=== PATIENT | male | born 1970 | race Caucasian/White ===

== ENCOUNTER 2016-04-17 22:00 | Emergency (ER) | payer MEDICAID, OTHER ==
[~2016-04-17] VITALS: Ht 172.7 cm; Wt 90.7 kg
[~2016-04-17 22:00] MED LIST: ASPIR-TRIN325 M1 PO; ASPIRIN ADULT L81 M1 PO; ASPIRIN81 M1 PO; COLACE100 M1 PO; DOCUSATE100 MG PO; FLAGYL250 MG PO; LEVAQUIN500 MG PO; METFORMIN500 MG PO; NORCO 10/325 MG1 TAB PO; PRINIVIL10 M1 PO; ZOCOR20 MG PO
[2016-04-17 22:10] VITALS: BP 117/59
--- NOTE | 2016-04-17 22:52 | NUR ---
TO ER BED 7
--- NOTE | 2016-04-17 23:02 | NUR ---
PATIENT PRESENTS TO ED WITH RT FOOT GREATER TOE EDEMA AND ERYTHEMA X4DAYS. PT STATES HE WAS PLAYING BASKETBALL AND NOW HIS TOE IS HURTING . DENIES N/V/D; SKIN IS PINK/WARM/DRY; AAOX4 WITH EVEN AND STEADY GAIT; LUNGS CLEAR BL; HR EVEN AND REGULAR; PT DENIES ANY FEVER, CP, SOB, OR COUGH AT THIS TIME; PATIENT STATES PAIN OF 8/10 AT THIS TIME; VSS; PATIENT POSITIONED FOR COMFORT; HOB ELEVATED; BEDRAILS UP X2; BED DOWN. ER MD MADE AWARE OF PT STATUS. AT BEDSIDE
[2016-04-17] MEDS ORDERED: KETOROLAC 60 MG/2 ML VIAL IM ONE (23:20)
[2016-04-18 00:48] VITALS: BP 117/59
--- NOTE | 2016-04-18 00:53 | NUR ---
Patient discharged with v/s stable. Written and verbal after care instructions given and explained. Patient alert, oriented and verbalized understanding of instructions. Ambulatory with steady gait. All questions addressed prior to discharge. ID band removed. Patient advised to follow up with PMD. Rx of BACTRIM AND MOTRIN given. Patient educated on indication of medication including possible reaction and side effects. Opportunity to ask questions provided and answered.
[2016-08-30] MEDS ORDERED: FLAGYL250 MG PO (09:24)
[2016-08-30] MEDS ORDERED: PRINIVIL10 M1 PO (09:24)
[2016-08-30] MEDS ORDERED: ZOCOR40 MG PO (09:24)
== END 2016-04-18 00:48 | disposition home or self-care (01) ==
LOC: MED 22:00
PROC: 3E033GC Introduction of Other Therapeutic Substance into Peripheral Vein, Percutaneous Approach (ICD-10-PCS; principal; 2016-04-17)
DX: L03.115 Cellulitis of right lower limb (principal); I10 Essential (primary) hypertension; E11.9 Type 2 diabetes mellitus without complications; J45.909 Unspecified asthma, uncomplicated
CPT/HCPCS: 36415; 73630; 82948; 84550; 96372; 99284; J1885; Q0092

== ENCOUNTER 2016-08-28 09:25 | Inpatient (IN) | payer MEDICAID ==
[~2016-08-28] VITALS: Ht 172.7 cm; Wt 93.0 kg
[~2016-08-28 09:25] MED LIST changes: +ASPI81CT89 PO; -ASPIR-TRIN325 M1 PO; -ASPIRIN ADULT L81 M1 PO; -ASPIRIN81 M1 PO; -COLACE100 M1 PO; -DOCUSATE100 MG PO; -FLAGYL250 MG PO; +HYDR-4452 PO; -LEVAQUIN500 MG PO; +LEVO500T6 PO; +LISI10TA2 PO; +METF500T64 PO; -METFORMIN500 MG PO; +METR250T2 PO; -NORCO 10/325 MG1 TAB PO; -PRINIVIL10 M1 PO; +SIMV20TA1 PO; -ZOCOR20 MG PO
[2016-08-28 09:49] VITALS: BP 118/83
[2016-08-28] MEDS ORDERED: HYDROmorphone 1 MG/ML AMP IVP ONE (11:25)
[2016-08-28] MEDS ORDERED: ONDANSETRON 4 MG/2 ML VIAL IVP ONE (11:25)
[2016-08-28] MEDS ORDERED: NACL 0.9% 1,000 ML IV ONE (11:25)
[2016-08-28] MEDS ORDERED: MEROPENEM 1,000 MG in NACL 0.9% 100 ML IV ONE (11:25)
[2016-08-28 11:44] LABS: HEMATOCRIT 49.1 % (36-52); MEAN CORPUSCULAR HEMOGLOBIN 32 pg (27-31); MEAN CORPUSCULAR HGB CONC 35 g/dL (33-37); MEAN CORPUSCULAR VOLUME 94 fL (80-94); PLATELET COUNT (AUTO) 370 K/uL (140-450); RED BLOOD CELL COUNT(AUTO) 5.24 MIL/uL (4.20-6.10); RED CELL DISTRIBUTION WIDTH 12.1 % (11.6-13.7); WHITE BLOOD COUNT (AUTO) 15.5 K/uL (4.8-10.8)
[2016-08-28 11:47] LABS: APPEARANCE,URINE CLEAR (CLEAR); BILIRUBIN,URINE NEGATIVE (NEGATIVE); BLOOD, URINE NEGATIVE (NEGATIVE); COLOR,URINE YELLOW (YELLOW); LEUKOCYTE ESTERASE ,URINE NEGATIVE (NEGATIVE); NITRITE, URINE NEGATIVE (NEGATIVE); PH,URINE 5.5 (5.0-9.0); PROTEIN,URINE NEGATIVE (NEGATIVE); UGLUCOSE NEGATIVE (NEGATIVE); UROBILINOGEN,URINE 0.2 EU/dL (0.2 - 1)
[2016-08-28 11:52] LABS: BACTERIA,URINE None Seen /HPF (None Seen); RBC,URINE NONE SEEN /HPF (0-5); SQUAMOUS EPITHELIAL CELL,UR 0-3 (FEW) /LPF (0-3 (FEW)); WBC,URINE NONE SEEN /HPF (0-5)
[2016-08-28 11:52] LABS: ANION GAP 10.2 (8-16); CARBON DIOXIDE 30.2 mmol/L (21-32); CREATININE 1.3 mg/dL (0.7-1.3); POTASSIUM 4.4 mmol/L (3.5-5.1)
[2016-08-28] MEDS ORDERED: MEROPENEM 1,000 MG VIAL IV ONE (11:57)
[2016-08-28 11:58] LABS: ALBUMIN 4.2 g/dL (3.4-5.0); TOTAL BILIRUBIN 1.1 mg/dL (0.0-1.0); TOTAL PROTEIN, SERUM 8.3 g/dL (6.4-8.2)
[2016-08-28 12:06] LABS: NEUTROPHILS % (MANUAL) 82 (43-65)
[2016-08-28 12:07] LABS: EOSINOPHILS % (MANUAL) 3 % (0-4); LYMPHOCYTES % (MANUAL) 11 % (20-46); MONOCYTES % (MANUAL) 4 % (5-12); PLATELET ESTIMATE ADEQUATE
[2016-08-28] MEDS ORDERED: ONDANSETRON 4 MG/2 ML VIAL IVP PRN (14:35)
[2016-08-28] MEDS ORDERED: ACETAMINOPHEN 325 MG TAB PO PRN (14:35)
[2016-08-28 15:14] LABS: LACTIC ACID 1.2 mmol/L (0.4-2.0)
[2016-08-28 15:20] LABS: CHOL/HDL RATIO 4.9 (1-4.5); FREE T4 (FREE THYROXINE) 0.86 ng/dL (0.76-1.46); MAGNESIUM 1.9 mg/dL (1.8-2.4); PARTIAL THROMBOPLASTIN TIME 29.9 secs (22-35.6); PHOSPHORUS 3.6 mg/dL (2.5-4.9); PROTHROMBIN TIME 10.3 secs (10.8-13.4); THYROID STIMULATING HORMONE 0.87 uIU/mL (0.34-3.74)
[2016-08-28 15:24] LABS: AMPHETAMINE, URINE NEG. ng/ml (NEG <=1000); BARBITURATE, URINE NEG. ng/ml (NEG <=200); BENZODIAZEPINE, URINE NEG. ng/mL (NEG <=200); CANNABINOID, URINE NEG. ng/mL (NEG <=50); COCAINE, URINE NEG. ng/mL (NEG <=300); OPIATE, URINE NEG. ng/mL (NEG <=2000); PHENCYCLIDINE SCREEN,URINE NEG. ng/mL (NEG <=25)
[2016-08-28 15:30] VITALS: BP 116/76
[2016-08-28] MEDS ORDERED: DEXTROSE 50% 50 ML SYR IVP PRN (16:40)
[2016-08-28] MEDS ORDERED: INSULIN LISPRO SLIDING SCALE 100 UNITS/ML VIAL SUBQ PRN (16:40)
[2016-08-28] MEDS ORDERED: PNEUMOCOCCAL VACCINE 23 MCG/0.5 ML VIAL IMVAC SCH (17:15)
[2016-08-28] MEDS ORDERED: PIPERACILLIN/TAZOBACTAM 3.375 GM in DEXTROSE 5% 50 ML IV SCH (18:00)
[2016-08-28] MEDS: PIPER/TAZO 3.375GM/D5W PREMIX 50 ML IV SCH ×2 (18:14→23:57)
[2016-08-28] MEDS: HYDROcodone/APAP 7.5/325 MG 1 TAB PO PRN (18:15)
[2016-08-28] MEDS: NACL 0.9% 1,000 ML IV SCH (18:17)
[2016-08-28 20:00] VITALS: BP 132/84
[2016-08-28] MEDS: DOCUSATE SODIUM 100 MG GELCAP PO SCH (20:51)
[2016-08-28] MEDS: metFORMIN 500 MG TAB PO SCH (20:51)
[2016-08-28] MEDS: SIMVASTATIN 20 MG TAB PO SCH (20:51)
[2016-08-28] MEDS: BLOOD GLUCOSE MONITORING 1 DEV DEV FS SCH (20:52)
[2016-08-28] MEDS: MORPHINE SULFATE 2 MG/ML SYR IVP PRN (23:57)
[2016-08-29] VITALS: BP 131/87
[2016-08-29] MEDS: NACL 0.9% 1,000 ML IV SCH ×3 (00:01→16:45)
[2016-08-29 04:00] VITALS: BP 128/74
[2016-08-29] MEDS: PIPER/TAZO 3.375GM/D5W PREMIX 50 ML IV SCH ×4 (05:05→23:34)
[2016-08-29 05:48] LABS: BASOPHILS # (AUTO) 0.1 K/uL (0.00-0.22); BASOPHILS % (AUTO) 0.7 % (0.0-2.0); EOSINOPHILS # (AUTO) 0.2 K/uL (0-0.4); EOSINOPHILS % (AUTO) 1.4 % (0.0-4.0); HEMATOCRIT 45.1 % (36-52); HEMOGLOBIN 15.4 g/dL (12.0-18.0); LYMPHOCYTES # (AUTO) 1.9 K/uL (2.0-11.5); LYMPHOCYTES % (AUTO) 13.3 % (20.5-51.1); MEAN CORPUSCULAR HEMOGLOBIN 33 pg (27-31); MEAN CORPUSCULAR HGB CONC 34 g/dL (33-37); MEAN CORPUSCULAR VOLUME 96 fL (80-94); MONOCYTES # (AUTO) 1.5 K/uL (0.8-1.0); MONOCYTES % (AUTO) 10.6 % (1.7-9.3); NEUTROPHILS # (AUTO) 10.8 K/uL (1.8-7.7); PLATELET COUNT (AUTO) 345 K/uL (140-450); RED CELL DISTRIBUTION WIDTH 12.2 % (11.6-13.7); WHITE BLOOD COUNT (AUTO) 14.5 K/uL (4.8-10.8)
[2016-08-29 06:33] LABS: ANION GAP 12.6 (8-16); CALCIUM 8.5 mg/dL (8.5-10.1); CARBON DIOXIDE 28.5 mmol/L (21-32); CREATININE 1.3 mg/dL (0.7-1.3); POTASSIUM 4.1 mmol/L (3.5-5.1)
[2016-08-29 06:47] LABS: MAGNESIUM 1.8 mg/dL (1.8-2.4); PHOSPHORUS 3.5 mg/dL (2.5-4.9)
[2016-08-29] MEDS: BLOOD GLUCOSE MONITORING 1 DEV DEV FS SCH ×4 (06:53→21:38)
[2016-08-29 08:00] VITALS: BP 119/70
[2016-08-29] MEDS: ASPIRIN 81 MG TAB.CHEW PO SCH (08:18)
[2016-08-29] MEDS: DOCUSATE SODIUM 100 MG GELCAP PO SCH ×2 (08:19→21:38)
[2016-08-29] MEDS: LACTOBACILLUS RHAMNOSUS GG 1 EACH CAP PO SCH (08:19)
[2016-08-29] MEDS: LISINOPRIL 10 MG TAB PO SCH (08:19)
[2016-08-29] MEDS: HYDROcodone/APAP 7.5/325 MG 1 TAB PO PRN ×2 (08:19→21:39)
[2016-08-29] MEDS: metFORMIN 500 MG TAB PO SCH ×2 (09:00→21:00)
[2016-08-29 12:00] VITALS: BP 125/69
[2016-08-29 16:00] VITALS: BP 123/71
[2016-08-29] MEDS: MORPHINE SULFATE 2 MG/ML SYR IVP PRN (17:26)
[2016-08-29] MEDS: SIMETHICONE 80 MG TAB.CHEW PO PRN (17:56)
[2016-08-29 20:00] VITALS: BP 113/51
[2016-08-29] MEDS: SIMVASTATIN 20 MG TAB PO SCH (21:38)
[2016-08-30] VITALS: BP 113/51
[2016-08-30] MEDS: NACL 0.9% 1,000 ML IV SCH (00:16)
[2016-08-30] MEDS: MORPHINE SULFATE 2 MG/ML SYR IVP PRN (03:46)
[2016-08-30 04:00] VITALS: BP 121/70
[2016-08-30] MEDS: SIMETHICONE 80 MG TAB.CHEW PO PRN (05:08)
[2016-08-30 06:01] LABS: BASOPHILS # (AUTO) 0.1 K/uL (0.00-0.22); BASOPHILS % (AUTO) 0.9 % (0.0-2.0); EOSINOPHILS # (AUTO) 0.1 K/uL (0-0.4); HEMATOCRIT 45.9 % (36-52); HEMOGLOBIN 15.6 g/dL (12.0-18.0); LYMPHOCYTES # (AUTO) 2.3 K/uL (2.0-11.5); LYMPHOCYTES % (AUTO) 16.1 % (20.5-51.1); MEAN CORPUSCULAR HEMOGLOBIN 33 pg (27-31); MEAN CORPUSCULAR HGB CONC 34 g/dL (33-37); MEAN CORPUSCULAR VOLUME 96 fL (80-94); MONOCYTES # (AUTO) 1.4 K/uL (0.8-1.0); MONOCYTES % (AUTO) 9.7 % (1.7-9.3); NEUTROPHILS # (AUTO) 10.6 K/uL (1.8-7.7); NEUTROPHILS % (AUTO) 72.3 % (42.2-75.2); PLATELET COUNT (AUTO) 349 K/uL (140-450); RED BLOOD CELL COUNT(AUTO) 4.79 MIL/uL (4.20-6.10); RED CELL DISTRIBUTION WIDTH 12.3 % (11.6-13.7); WHITE BLOOD COUNT (AUTO) 14.5 K/uL (4.8-10.8)
[2016-08-30] MEDS: PIPER/TAZO 3.375GM/D5W PREMIX 50 ML IV SCH (06:09)
[2016-08-30] MEDS: BLOOD GLUCOSE MONITORING 1 DEV DEV FS SCH (06:10)
[2016-08-30 06:15] LABS: ANION GAP 9.7 (8-16); CALCIUM 8.7 mg/dL (8.5-10.1); CARBON DIOXIDE 32.4 mmol/L (21-32); CREATININE 1.3 mg/dL (0.7-1.3); POTASSIUM 4.1 mmol/L (3.5-5.1)
[2016-08-30 06:31] LABS: MAGNESIUM 1.8 mg/dL (1.8-2.4); PHOSPHORUS 3.4 mg/dL (2.5-4.9)
[2016-08-30 08:00] VITALS: BP 132/72
[2016-08-30] MEDS: DOCUSATE SODIUM 100 MG GELCAP PO SCH (08:31)
[2016-08-30] MEDS: LACTOBACILLUS RHAMNOSUS GG 1 EACH CAP PO SCH (08:31)
[2016-08-30] MEDS: ASPIRIN 81 MG TAB.CHEW PO SCH (08:31)
[2016-08-30] MEDS: HYDROcodone/APAP 7.5/325 MG 1 TAB PO PRN (08:31)
[2016-08-30] MEDS: LISINOPRIL 10 MG TAB PO SCH (08:31)
[2016-08-30] MEDS: metFORMIN 500 MG TAB PO SCH (08:32)
[2016-08-30] MEDS ORDERED: SIMV40TA1 PO (09:24)
[2016-08-30] MEDS ORDERED: LISI10TA2 PO (09:24)
[2016-08-30] MEDS ORDERED: METR250T2 PO (09:24)
== END 2016-08-30 10:57 | disposition home or self-care (01) | DRG 244 ==
LOC: MED 09:25 → MTU 15:30
PROVIDERS: ADMIT Student in an Organized Health Care Education/Training Program; ATTEND Student in an Organized Health Care Education/Training Program
DX: K57.32 Diverticulitis of large intestine without perforation or abscess without bleeding (principal); N17.0 Acute kidney failure with tubular necrosis; D68.59 Other primary thrombophilia; I10 Essential (primary) hypertension; E11.9 Type 2 diabetes mellitus without complications; D72.829 Elevated white blood cell count, unspecified; E86.0 Dehydration; E78.5 Hyperlipidemia, unspecified; K59.09 Other constipation; Z53.29 Procedure and treatment not carried out because of patient's decision for other reasons; F17.210 Nicotine dependence, cigarettes, uncomplicated; E66.9 Obesity, unspecified; Z68.31 Body mass index [BMI] 31.0-31.9, adult; Z79.899 Other long term (current) drug therapy; Z79.82 Long term (current) use of aspirin; Z71.6 Tobacco abuse counseling; Z83.3 Family history of diabetes mellitus; Z82.49 Family history of ischemic heart disease and other diseases of the circulatory system; Z71.3 Dietary counseling and surveillance; Z79.84 Long term (current) use of oral hypoglycemic drugs
CPT/HCPCS: 36415; 71010; 80048; 80053; 80305; 81001; 82150; 82948; 83036; 83605; 83690; 83735; 83880; 84100; 84132; 84439; 84443; 84484; 85025; 85610; 85730; 87040; 87081; 87086; 93005; 93925; 93970; 96365; 99285; J1170; J1815; J2185; J2270; J2405; J2543; J7030; J7060; Q0092; Q9967

== ENCOUNTER 2017-02-11 07:56 | Emergency (ER) | payer MEDICAID ==
[~2017-02-11] VITALS: Ht 172.7 cm; Wt 104.8 kg
[~2017-02-11 07:56] MED LIST changes: +GLU500 PO; -HYDR-4452 PO; -LEVO500T6 PO; -METF500T64 PO; -SIMV20TA1 PO; +SIMV40TA1 PO
[2017-02-11 08:17] VITALS: BP 152/93
--- NOTE | 2017-02-11 08:24 | NUR ---
PT AMBULATES WITH TO OF3
--- NOTE | 2017-02-11 09:00 | NUR ---
ASSUMED PATIENT CARE, CONCUR WITH TRIAGE ASSESSMENT. C/O SOB, COUGH, FEVER X 4 DAYS.
[2017-02-11] MEDS ORDERED: LEVOFLOXACIN 250 MG TAB PO ONE (09:10)
[2017-02-11] MEDS ORDERED: IPRATROPIUM 0.02% 0.5 MG/2.5 ML NEBU INH ONE (09:10)
[2017-02-11] MEDS ORDERED: cefTRIAXone 1,000 MG in LIDOCAINE 1% ***ER ONLY *** 2.1 ML IM ONE (09:10)
[2017-02-11] MEDS ORDERED: ALBUTEROL 0.083% 2.5 MG/3 ML NEBU INH ONE (09:10)
[2017-02-11] MEDS ORDERED: DEXAMETHASONE 10 MG/ML VIAL IM ONE (09:10)
[2017-02-11] MEDS ORDERED: cefTRIAXone 1,000 MG VIAL ONE (09:43)
--- NOTE | 2017-02-11 10:23 | NUR ---
SEEN AND REEVALUATED BY PROVIDER, DISPO AND MEDICAL DECISION, DC HOME WITH INSTRUCTIONS AND PRESCRIPTIONS.
[2017-02-11 10:43] VITALS: BP 138/77
--- NOTE | 2017-02-11 10:45 | NUR ---
DC HOME WITH INSTRUCTIONS AND PRESCRIPTIONS, UNDERSTOOD BY PATIENT WELL. VERBALIZED RELIEF FROM SYMPTOMS.
== END 2017-02-11 10:45 | disposition home or self-care (01) ==
LOC: MED 07:56
DX: J40 Bronchitis, not specified as acute or chronic (principal); E11.9 Type 2 diabetes mellitus without complications; I10 Essential (primary) hypertension; Z79.899 Other long term (current) drug therapy; Z79.82 Long term (current) use of aspirin; Z79.84 Long term (current) use of oral hypoglycemic drugs
CPT/HCPCS: 71045; 82948; 94640; 96372; 99284; J0696; J1100; J1956; J7613; J7644

== ENCOUNTER 2017-10-12 19:32 | Emergency (ER) | payer MEDICAID, OTHER ==
[~2017-10-12] VITALS: Ht 172.7 cm; Wt 111.6 kg
[2017-10-12 19:40] VITALS: BP 134/77
[2017-10-12 20:22] LABS: EOSINOPHILS # (AUTO) 0.3 K/uL (0-0.4); EOSINOPHILS % (AUTO) 2.7 % (0.0-4.0); HEMOGLOBIN 14.8 g/dL (12.0-18.0); LYMPHOCYTES # (AUTO) 1.6 K/uL (2.0-11.5); LYMPHOCYTES % (AUTO) 13.3 % (20.5-51.1); MEAN CORPUSCULAR HEMOGLOBIN 33 pg (27-31); MEAN CORPUSCULAR HGB CONC 34 g/dL (33-37); MEAN CORPUSCULAR VOLUME 95.3 fL (80-94); MONOCYTES # (AUTO) 2.9 K/uL (0.8-1.0); MONOCYTES % (AUTO) 23.9 % (1.7-9.3); NEUTROPHILS # (AUTO) 7.4 K/uL (1.8-7.7); NEUTROPHILS % (AUTO) 60.1 % (42.2-75.2); PLATELET COUNT (AUTO) 268 K/uL (140-450); RED BLOOD CELL COUNT(AUTO) 4.51 MIL/uL (4.20-6.10); RED CELL DISTRIBUTION WIDTH 12.9 % (11.6-13.7); WHITE BLOOD COUNT (AUTO) 12.3 K/uL (4.8-10.8)
[2017-10-12 20:39] LABS: ANION GAP 11.6 (8-16); CARBON DIOXIDE 30.9 mmol/L (21-32); CREATININE 1.3 mg/dL (0.7-1.3); POTASSIUM 4.5 mmol/L (3.5-5.1)
[2017-10-12 20:47] LABS: ALBUMIN 3.7 g/dL (3.4-5.0); TOTAL BILIRUBIN 0.5 mg/dL (0.0-1.0)
--- NOTE | 2017-10-12 20:50 | NUR ---
PATIENT LEFT WITHOUT BEING SEEN BY DR. ARMSTRONG. NO FURTHER CARE PROVIDED FOR PATIENT.
== END 2017-10-12 20:50 | disposition left against medical advice (07) ==
LOC: MED 19:32
DX: R10.9 Unspecified abdominal pain (principal); Z53.21 Procedure and treatment not carried out due to patient leaving prior to being seen by health care provider
CPT/HCPCS: 36415; 80053; 81002; 83690; 85025; 99281

== ENCOUNTER 2018-11-16 16:17 | Emergency (ER) | payer BC, OTHER ==
[~2018-11-16] VITALS: Ht 172.7 cm; Wt 110.2 kg
[~2018-11-16 16:17] MED LIST changes: +ASPI-1718 PO; -ASPI81CT89 PO
[2018-11-16 16:32] VITALS: BP 118/79
--- NOTE | 2018-11-16 17:54 | NUR ---
PT CALLED IN LOBBY AND DID NOT SHOW LWBS.
[2018-11-16 19:11] LABS: APPEARANCE,URINE CLEAR (CLEAR); COLOR,URINE YELLOW (YELLOW)
[2018-11-16 19:12] LABS: BILIRUBIN,URINE NEGATIVE (NEGATIVE); BLOOD, URINE NEGATIVE (NEGATIVE); LEUKOCYTE ESTERASE ,URINE NEGATIVE (NEGATIVE); NITRITE, URINE NEGATIVE (NEGATIVE); UGLUCOSE NEGATIVE (NEGATIVE)
--- NOTE | 2018-11-16 19:40 | NUR ---
PATIENT LEFT WITHOUT BEING SEEN BY DR. HERNÁNDEZ. NO FURTHER CARE PROVIDED FOR PATIENT.
== END 2018-11-16 19:40 | disposition left against medical advice (07) ==
LOC: MED 16:17
DX: R10.31 Right lower quadrant pain (principal); R10.32 Left lower quadrant pain; R11.0 Nausea; Z53.21 Procedure and treatment not carried out due to patient leaving prior to being seen by health care provider
CPT/HCPCS: 81003; 99281; 99282; 99283